=== PATIENT | male | born 1990 | race Caucasian/White ===

== ENCOUNTER 2017-02-18 09:21 | Emergency (ER) | payer MEDICAID ==
[2017-02-18 09:25] VITALS: RESP 16; TEMP 98.1; O2SAT 97
--- NOTE | 2017-02-18 10:56 | EDPHY ---
H & P Stated Complaint: Constipated x 2 wks verified by xr in PCPs office HPI/ROS: Chief complaint: Constipation History of present illness: This is a 26-year-old male who presents to the emergency department for constipation. He reports he has been constipated for the last 2 weeks. He has been unable to have a bowel movement. He is still passing gas. There is some nausea but no vomiting. No abdominal pain. He went to his primary care doctor's office yesterday, an x-ray was performed to confirm constipation he was started on MiraLax but still has not had a bowel movement. Review of systems: A 10 point review of systems was obtained and other than described above was negative - Personal History Current Tetanus Diphtheria and Acellular Pertussis (TDAP): Yes - Medical/Surgical History Hx Asthma: No Hx Chronic Respiratory Disease: No Hx Diabetes: No Hx Cardiac Disease: No Hx Renal Disease: No Hx Cirrhosis: No Hx Alcoholism: No Hx HIV/AIDS: No Hx Splenectomy or Spleen Trauma: No Other PMH: panic attacks - Social History Smoking Status: Former smoker - Physical Exam Exam: General Appearance: Alert and no distress. Eyes: Pupils equal and round no injection. Respiratory: Chest is non tender, lungs are clear to auscultation. Cardiac: regular rate and rhythm Gastrointestinal: Abdomen is soft and non tender, no masses, bowel sounds normal. Musculoskeletal: Neck is supple and non tender. Extremities have full range of motion and are non tender. Skin: No rashes or lesions. Constitutional: Initial Vital Signs Temperature (C) 36.7 C 02/18/17 09:22 Heart Rate 70 02/18/17 09:22 Respiratory Rate 16 02/18/17 09:22 Blood Pressure 112/72 02/18/17 09:22 O2 Sat (%) 97 02/18/17 09:22 O2 Delivery Mode Room Air Allergies/Adverse Reactions: No Known Allergies Allergy (Verified 02/18/17 09:21) Home Medications: Medication Instructions Recorded Peg 3350/Na Sulf,Bicarb,Cl/KCl 4,000 ml PO ONCE #1 btl 02/18/17 [Golytely (RX)] Medical Decision Making - Diagnostics Imaging: I viewed and interpreted images myself Procedures: Digital rectal exam is performed without evidence of fecal impaction ED Course/Re-evaluation: Patient seen under the supervision of my secondary supervising physician Dr. Rocael Gabriel. Patient presents to the emergency department for constipation. He is nontoxic. Vital signs are stable. Bowel sounds are normal and abdominal exam is benign. No evidence of impaction. X-ray confirms constipation. Believe patient is appropriate for outpatient management. I have given a prescription for GoLYTELY and I have discussed its use. He is to follow up with his primary care doctor for recheck. Return precautions are given. Patient voiced understanding and agreement with plan. Differential Diagnosis: Included but not limited to constipation, bowel obstruction Departure - Departure Disposition: Home, Routine, Self-Care Clinical Impression: Constipation Qualifiers: Constipation type: unspecified constipation type Qualified Code(s): K59.00 - Constipation, unspecified Condition: Good Instructions: Constipation (ED) Additional Instructions: Follow-up with a primary care doctor for recheck If symptoms worsen or new symptoms develop return to the emergency room for recheck Referrals: MIGUEL ANGEL JONES [Other] - As per Instructions Prescriptions: Peg 3350/Na Sulf,Bicarb,Cl/KCl [Golytely (RX)] 4,000 ml PO ONCE #1 btl
[2017-02-18 11:20] VITALS: BP 104/58; PULSE 44
== END 2017-02-18 11:21 | disposition home or self-care (01) ==
DX: K59.00 Constipation, unspecified (principal); Z87.891 Personal history of nicotine dependence

== ENCOUNTER 2018-09-24 07:13 | Emergency (ER) | payer MEDICAID | END 2018-09-24 07:45 | disposition home or self-care (01) | LOC: CED 07:13 ==